=== PATIENT | male | born 1985 | race Caucasian/White ===

== ENCOUNTER 2019-03-17 18:03 | Emergency (ER) | payer BC ==
[2019-03-17] MEDS ORDERED: Ondansetron 4 MG Tab.DIS PO ONE (19:02)
[2019-03-17] MEDS ORDERED: Alum Hydrox/Mag Hydrox/Simeth 30 ML, Lidocaine 2% 15 ML PO ONE ×2 (19:02)
--- NOTE | 2019-03-17 19:11 | EDM.PDOC ---
ED HPI GENERAL MEDICAL PROBLEM - General Chief Complaint: Chest Pain Stated Complaint: CHEST PAIN SENT BY CLINIC Time Seen by Provider: 03/17/19 18:34 Source of Information: Reports: Patient History Limitations: Reports: No Limitations - History of Present Illness INITIAL COMMENTS - FREE TEXT/NARRATIVE: 34 yo M comes in today with complaints of epigastric pain and heart burn x 3-4 weeks. He has cough with it which wakes him up at night, as well as nausea and emesis. He's at the point now that it's difficult to keep food down and he is on a liquid diet now. Typically, highly acidic foods cause the acid reflux but lately "it's been everything". He has tried Omeprazole, Zantac, Tums and Rolaids. Omeprazole helped for about 2-3 weeks and then stopped- he is still taking it. He has never had an endoscopy. He is a smoker, 1/2 ppd x 20 years. He denies any other chest pain, diarrhea, worsening symptoms with food, h/o ulcer. No other complaints at this time. Just moved here a couple months ago, no PCP. Left Chest Pain Score (Numeric/FACES): 10 - Related Data Allergies Allergy/AdvReac Type Severity Reaction Status Date / Time No Known Allergies Allergy Verified 03/17/19 18:12 Home Meds: Home Meds Amoxicillin 1,000 mg PO BID 14 Days #56 tab 03/17/19 [Rx] Clarithromycin 500 mg PO BID 14 Days #28 tablet 03/17/19 [Rx] Lisinopril/Hydrochlorothiazide [Lisinopril-HCTZ 10-12.5 MG] 1 tab PO DAILY 03/17 [History] Omeprazole 20 mg PO BID 42 Days #84 cap.sr 03/17/19 [Rx] Promethazine [Phenergan] 25 mg PO Q4H PRN #20 tab 03/17/19 [Rx] Past Medical History - Past Health History Medical/Surgical History: Denies Medical/Surgical History HEENT History: Reports: None Cardiovascular History: Reports: Hypertension Respiratory History: Reports: None Gastrointestinal History: Reports: Chronic Diarrhea, GERD Genitourinary History: Reports: Renal Disease Other Genitourinary History: renal failure due to dehydration, hypertension 4 years ago. Musculoskeletal History: Reports: Back Pain, Chronic, Fracture Neurological History: Reports: None Psychiatric History: Reports: None Endocrine/Metabolic History: Reports: None Hematologic History: Reports: None Immunologic History: Reports: None Oncologic (Cancer) History: Reports: None Dermatologic History: Reports: None - Infectious Disease History Infectious Disease History: Reports: None - Past Surgical History GI Surgical History: Reports: None Social & Family History - Family History Family Medical History: Noncontributory Cardiac: Reports: Hypertension Endocrine/Metabolic: Reports: Diabetes, type II Oncologic: Reports: Breast - Tobacco Use Smoking Status *Q: Current Every Day Smoker Years of Tobacco use: 20 Packs/Tins Daily: 0.5 - Caffeine Use Caffeine Use: Reports: Coffee, Energy Drinks, Soda, Tea - Recreational Drug Use Recreational Drug Use: Yes Drug Use in Last 12 Months: Yes Recreational Drug Type: Reports: Marijuana/Hashish ED ROS GENERAL - Review of Systems Review Of Systems: See Below Constitutional: Reports: No Symptoms. Denies: Fever, Chills, Decreased Appetite HEENT: Reports: No Symptoms Respiratory: Reports: Cough (dry cough, with acid reflux). Denies: Shortness of Breath, Sputum Cardiovascular: Reports: Chest Pain (epigastric region) Endocrine: Reports: No Symptoms GI/Abdominal: Reports: Nausea, Vomiting (food or bile). Denies: Abdominal Pain , Black Stool, Constipation, Diarrhea, Decreased Appetite, Hematemesis, Hematochezia : Reports: No Symptoms Musculoskeletal: Reports: No Symptoms Skin: Reports: No Symptoms Neurological: Reports: No Symptoms Psychiatric: Reports: No Symptoms Hematologic/Lymphatic: Reports: No Symptoms Immunologic: Reports: No Symptoms ED EXAM, GENERAL - Physical Exam Exam: See Below Exam Limited By: No Limitations General Appearance: Alert, WD/WN, No Apparent Distress Eye Exam: Bilateral Eye: EOMI, Normal Inspection, PERRL Ears: Normal External Exam, Hearing Grossly Normal Throat/Mouth: Normal Inspection, Normal Lips, Normal Teeth, Normal Gums, Normal Oropharynx, Normal Voice, No Airway Compromise Neck: Normal Inspection, Supple, Non-Tender, Full Range of Motion Respiratory/Chest: No Respiratory Distress, Lungs Clear, Normal Breath Sounds, No Accessory Muscle Use, Chest Non-Tender Cardiovascular: Normal Peripheral Pulses, Regular Rate, Rhythm, No Edema, No Gallop, No JVD, No Murmur, No Rub GI/Abdominal: Normal Bowel Sounds, Soft, Non-Tender, No Organomegaly, No Distention, No Abnormal Bruit, No Mass. No: Guarding, Rigid, Rebound Neurological: Alert, Oriented, CN II-XII Intact, Normal Cognition, Normal Gait, Normal Reflexes, No Motor/Sensory Deficits Psychiatric: Normal Affect, Normal Mood Skin Exam: Warm, Dry, Intact, Normal Color, No Rash EKG INTERPRETATION EKG Date: 03/17/19 Time: 19:17 Rhythm: NSR [place]: Normal P-Wave: Present QRS: Normal ST-T: Normal QT: Normal Course - Vital Signs Last Recorded V/S: Last Vital Signs Temp 98.3 F 03/17/19 18:16 Pulse 73 03/17/19 18:16 Resp 16 03/17/19 18:16 BP 164/99 H 03/17/19 18:16 Pulse Ox 97 03/17/19 18:16 - Orders/Labs/Meds Orders: Active Orders 24 hr Category Date Time Status EKG Documentation Completion [RC] ASDIRECTED Care 03/17/19 19:02 Active CXR [Chest 1V Frontal] [CR] Stat Exams 03/17/19 19:02 Taken EKG 12 Lead [EK] Stat Ther 03/17/19 19:01 Ordered Labs: Laboratory Tests 03/17/19 Range/Units 19:16 H. pylori IgG Antibody Positive H (NEGATIVE) Meds: Medications Discontinued Medications Generic Name Dose Route Start Last Admin Trade Name Freq PRN Reason Stop Dose Admin Al Hydroxide/Mg Hydroxide 30 0 ml 03/17/19 19:02 03/17/19 19:11 ml/ Lidocaine HCl 15 ml PO 03/17/19 19:03 45 ml ONETIME ONE Administration Ondansetron HCl 4 mg 03/17/19 19:02 03/17/19 19:11 Zofran Odt PO 03/17/19 19:03 4 mg ONETIME ONE Administration Sucralfate 1 gm 03/17/19 19:21 03/17/19 19:31 Carafate PO 03/17/19 19:22 1 gm ONETIME ONE Administration - Re-Assessments/Exams Free Text/Narrative Re-Assessment/Exam: 03/17/19 19:03 I have ordered H pylori, EKG, CXR GI cocktail, Zofran 03/17/19 19:26 EKG and CXR reviewed by Dr. Mane and myself- nothing acute seen. 03/17/19 20:06 H pylori positive Departure - Departure Time of Disposition: 20:12 Disposition: Home, Self-Care 01 Condition: Fair Clinical Impression: H. pylori infection, Heart burn Prescriptions: Amoxicillin 1,000 mg PO BID 14 Days #56 tab Clarithromycin 500 mg PO BID 14 Days #28 tablet Omeprazole 20 mg PO BID 42 Days #84 cap.sr Promethazine [Phenergan] 25 mg PO Q4H PRN #20 tab PRN Reason: Nausea Instructions: Helicobacter Pylori Infection, Heartburn, [id number] Referrals: PCP,None [Primary Care Provider] - Forms: ED Department Discharge Additional Instructions: You were seen in the ED today for heartburn x 3-4 weeks w/ nausea and emesis. Your cardiac workup was negative and your history is indicative of GERD. Recommend bland diet (BRAT- banana, rice, applesauce, toast) and liquids. Recommend follow up with surgeon for endoscopy. You can call to make an appointment with Dr. Muller at . You were also found to be H Pylori positive, so an antibiotic regimen will need to be started to kill this infection. Recommend taking omeprazole 20mg twice per day for 3-4 days first, then add the antibiotic regimen of Amoxicillin 1 g twice daily for 14 days and Clarithromycin twice daily for 14 days. Continue the omeprazole for at least 6 weeks. Please return to ED if new or worsening symptoms. - My Orders Last 24 Hours: My Active Orders 03/17/19 19:01 EKG 12 Lead [EK] Stat 03/17/19 19:02 EKG Documentation Completion [RC] ASDIRECTED CXR [Chest 1V Frontal] [CR] Stat - Assessment/Plan Last 24 Hours: My Active Orders 03/17/19 19:01 EKG 12 Lead [EK] Stat 03/17/19 19:02 EKG Documentation Completion [RC] ASDIRECTED CXR [Chest 1V Frontal] [CR] Stat
[2019-03-17] MEDS ORDERED: Sucralfate Suspension 1 GM/10 ML Cup PO ONE (19:21)
--- NOTE | 2019-03-18 08:34 | CR ---
Chest: Portable view of the chest was obtained. Comparison: Prior chest x-ray is not available. Heart size and mediastinum are within normal limits. Lungs are clear with no acute parenchymal change. Bony structures are grossly intact. Impression: 1. Nothing acute is appreciated on portable chest x-ray. Diagnostic code #1
== END 2019-03-17 20:44 | disposition home or self-care (01) ==
LOC: JD.ED 18:03
DX: R12 Heartburn (principal); B96.81 Helicobacter pylori [H. pylori] as the cause of diseases classified elsewhere; I10 Essential (primary) hypertension; F17.210 Nicotine dependence, cigarettes, uncomplicated; Z79.899 Other long term (current) drug therapy
CPT/HCPCS: 36415; 71045; 86677; 93005; 99285; A9270; 93010; 99284

== ENCOUNTER 2019-09-18 04:05 | Emergency (ER) | payer BC ==
[2019-09-18] MEDS ORDERED: Ondansetron 4 MG/2 ML SDV IVPUSH ONE (04:24)
[2019-09-18] MEDS ORDERED: Pantoprazole 40 MG Vial IVPUSH ONE (04:24)
[2019-09-18] MEDS ORDERED: HYDROmorphone 0.5 MG/0.5 ML Syringe IVPUSH ONE (04:25)
--- NOTE | 2019-09-18 04:29 | EDM.PDOC ---
ED HPI GENERAL MEDICAL PROBLEM - General Chief Complaint: Gastrointestinal Problem Stated Complaint: VOMITING Time Seen by Provider: 09/18/19 04:08 Source of Information: Reports: Patient History Limitations: Reports: No Limitations - History of Present Illness INITIAL COMMENTS - FREE TEXT/NARRATIVE: This 34-year-old male. Onset of nausea and vomiting about 20 minutes prior to coming to the ER. He is vomiting up brown-looking emesis. He complains of abdominal pain in the lower abdomen as well as midline epigastric and up. He does have a history of H. pylori back in March of this year but was treated for 3 weeks with antibiotics and hasn't had a problem since. He ate home. This evening and apparently was okay. He does have a history of heartburn and hiatal hernia. He is actively vomiting when he comes to the ER. He has loose stools which is normal for him. He denies any fever or chills. He states that prior to this he was feeling okay. Upper Abdomen Pain Score (Numeric/FACES): 10 - Related Data Allergies Allergy/AdvReac Type Severity Reaction Status Date / Time bee venom protein (honey bee) Allergy Swelling Verified 09/18/19 04:16 soap Allergy Cannot Verified 09/18/19 04:16 Remember Home Meds: Home Meds Lisinopril/Hydrochlorothiazide [Lisinopril-HCTZ 10-12.5 MG] 1 tab PO DAILY 03/17 [History] Omeprazole 20 mg PO BID 42 Days #84 cap.sr 03/17/19 [Rx] Tetracycline HCl 500 mg PO QID #56 capsule 09/18/19 [Rx] metroNIDAZOLE [Flagyl] 500 mg PO Q12H #28 tab 09/18/19 [Rx] Past Medical History - Past Health History Medical/Surgical History: Denies Medical/Surgical History HEENT History: Reports: None Cardiovascular History: Reports: High Cholesterol, Hypertension Respiratory History: Reports: None Gastrointestinal History: Reports: Chronic Diarrhea, GERD, Helicobacter Pylori, Hiatal Hernia Genitourinary History: Reports: Renal Disease Other Genitourinary History: renal failure due to dehydration, hypertension 4 years ago. Musculoskeletal History: Reports: Back Pain, Chronic, Fracture Neurological History: Reports: None Psychiatric History: Reports: None Endocrine/Metabolic History: Reports: None Hematologic History: Reports: None Immunologic History: Reports: None Oncologic (Cancer) History: Reports: None Dermatologic History: Reports: None - Infectious Disease History Infectious Disease History: Reports: None - Past Surgical History GI Surgical History: Reports: None Social & Family History - Family History Family Medical History: Noncontributory Cardiac: Reports: Hypertension Endocrine/Metabolic: Reports: Diabetes, type II Oncologic: Reports: Breast - Tobacco Use Smoking Status *Q: Current Every Day Smoker Years of Tobacco use: 20 Packs/Tins Daily: 0.5 - Caffeine Use Caffeine Use: Reports: Coffee, Energy Drinks, Soda, Tea - Recreational Drug Use Recreational Drug Use: No ED ROS GENERAL - Review of Systems Review Of Systems: See Below Constitutional: Denies: Fever, Chills HEENT: Reports: No Symptoms Respiratory: Reports: No Symptoms Cardiovascular: Reports: No Symptoms Endocrine: Reports: No Symptoms GI/Abdominal: Reports: Abdominal Pain, Nausea, Vomiting. Denies: Diarrhea : Reports: No Symptoms Musculoskeletal: Reports: No Symptoms Skin: Reports: No Symptoms Neurological: Reports: No Symptoms Psychiatric: Reports: No Symptoms Hematologic/Lymphatic: Reports: No Symptoms ED EXAM, GI/ABD - Physical Exam Exam: See Below Exam Limited By: No Limitations General Appearance: Alert, WD/WN, Mild Distress Eyes: Bilateral: Normal Appearance Ears: Normal External Exam Nose: Normal Inspection Throat/Mouth: Normal Inspection, Normal Lips, Normal Voice, No Airway Compromise Head: Normocephalic Neck: Supple Respiratory/Chest: No Respiratory Distress, Lungs Clear, Normal Breath Sounds Cardiovascular: Regular Rate, Rhythm, No Murmur, Tachycardia GI/Abdominal Exam: Soft, Other (He is tender in the epigastric area on palpation and also slightly in the lower abdomen, right upper quadrant is not particularly tender on palpation and there is negative Esquivel sign, bowel sounds are quiet.) Back Exam: Full Range of Motion Extremities: Normal Inspection, Normal Range of Motion Neurological: Alert, Oriented Psychiatric: Normal Affect, Normal Mood Skin Exam: Warm, Dry Course - Vital Signs Last Recorded V/S: Last Vital Signs Temp 97.3 F 09/18/19 04:13 Pulse 118 H 09/18/19 04:13 Resp 19 09/18/19 04:13 BP 138/81 09/18/19 04:13 Pulse Ox 96 09/18/19 04:13 - Orders/Labs/Meds Orders: Active Orders 24 hr Category Date Time Status Sodium Chloride 0.9% [Normal Saline] 1,000 ml Med 09/18/19 04:30 Active IV ASDIRECTED Medication Orders Sodium Chloride (Normal Saline) 1,000 mls @ 1,000 mls/hr IV ASDIRECTED RUSSELL Last Admin: 09/18/19 04:41 Dose: 1,000 mls/hr Labs: Laboratory Tests 09/18/19 09/18/19 09/18/19 Range/Units 04:25 04:25 04:25 WBC 10.72 H (4.23-9.07) K/mm3 RBC 4.90 (4.63-6.08) M/mm3 Hgb 14.7 (13.7-17.5) gm/dl Hct 42.0 (40.1-51.0) % MCV 85.7 (79.0-92.2) fl MCH 30.0 (25.7-32.2) pg MCHC 35.0 (32.2-35.5) g/dl RDW Std Deviation 38.7 (35.1-43.9) fL Plt Count 312 (163-337) K/mm3 MPV 10.2 (9.4-12.3) fl Neut % (Auto) 56.4 (34.0-67.9) % Lymph % (Auto) 34.6 (21.8-53.1) % [place] % (Auto) 8.0 (5.3-12.2) % Eos % (Auto) 0.5 L (0.8-7.0) Baso % (Auto) 0.2 (0.1-1.2) % Neut # (Auto) 6.05 H (1.78-5.38) K/mm3 Lymph # (Auto) 3.71 H (1.32-3.57) K/mm3 [place] # (Auto) 0.86 H (0.30-0.82) K/mm3 Eos # (Auto) 0.05 (0.04-0.54) K/mm3 Baso # (Auto) 0.02 (0.01-0.08) K/mm3 Manual Slide Review Abnormal smear Sodium 141 (136-145) mEq/L Potassium 3.9 (3.5-5.1) mEq/L Chloride 102 (98-107) mEq/L Carbon Dioxide 23 (21-32) mEq/L Anion Gap 19.9 H (5-15) BUN 19 H (7-18) mg/dL Creatinine 1.1 (0.7-1.3) mg/dL Est Cr Clr Drug Dosing 94.62 mL/min Estimated GFR (MDRD) > 60 (>60) mL/min BUN/Creatinine Ratio 17.3 (14-18) Glucose 147 H (74-106) mg/dL Calcium 8.3 L (8.5-10.1) mg/dL Total Bilirubin 0.3 (0.2-1.0) mg/dL AST 31 (15-37) U/L ALT 64 H (16-63) U/L Alkaline Phosphatase 78 (46-116) U/L Total Protein 7.9 (6.4-8.2) g/dl Albumin 3.9 (3.4-5.0) g/dl Globulin 4.0 gm/dL Albumin/Globulin Ratio 1.0 (1-2) Lipase 98 (73-393) U/L H. pylori IgG Antibody Positive H (NEGATIVE) Meds: Medications Generic Name Dose Route Start Last Admin Trade Name Freq PRN Reason Stop Dose Admin Sodium Chloride 1,000 mls @ 1,000 mls/hr 09/18/19 04:30 09/18/19 04:41 Normal Saline IV 1,000 mls/hr ASDIRECTED RUSSELL Administration Discontinued Medications Generic Name Dose Route Start Last Admin Trade Name Freq PRN Reason Stop Dose Admin Hydromorphone HCl 0.5 mg 09/18/19 04:25 09/18/19 04:39 Dilaudid IVPUSH 09/18/19 04:26 0.5 mg ONETIME ONE Administration Ondansetron HCl 4 mg 09/18/19 04:24 09/18/19 04:32 Zofran IVPUSH 09/18/19 04:25 4 mg ONETIME ONE Administration Pantoprazole Sodium 40 mg 09/18/19 04:24 09/18/19 04:35 Protonix Iv IVPUSH 09/18/19 04:25 40 mg ONETIME ONE Administration - Re-Assessments/Exams Free Text/Narrative Re-Assessment/Exam: 09/18/19 04:35 We did check the emesis for some blood and it was positive for some blood slightly. I'm not certain if he is having a ulcer there might be bleeding slightly but it is old blood not bright red blood. He does have a history of ulcers from H. pylori though he is never had any sort of bleeding. He denies any black or tarry looking stools lately. He does state he had a couple of beers and tamales that were very spicy tonight. 09/18/19 05:58 I spoke to the and the patient regarding the positive H. pylori and I believe he has an ulcer again and we need to treat him. He is to follow up with the doctor on Friday for recheck. I'll put him on a two-week dose regimen but it will need to be extended for at least another week if not 2 more weeks after that. Departure - Departure Time of Disposition: 05:59 Disposition: Home, Self-Care 01 Condition: Fair Clinical Impression: H. pylori duodenitis, Hematemesis with nausea, Peptic ulcer, H. pylori infection - Discharge Information *PRESCRIPTION DRUG MONITORING PROGRAM REVIEWED*: Not Applicable *COPY OF PRESCRIPTION DRUG MONITORING REPORT IN PATIENT RANDEE: Not Applicable Prescriptions: metroNIDAZOLE [Flagyl] 500 mg PO Q12H #28 tab Tetracycline HCl 500 mg PO QID #56 capsule Instructions: Hematemesis, Peptic Ulcer Eating Plan Referrals: Sydni Hudson MD [Primary Care Provider] - Forms: ED Department Discharge Additional Instructions: You need to take Bismuth subcitrate 2 tablets twice a day, this is found over the counter. Pantoprazole 40 mg twice a day, this is prescription. Then 2 antibiotics metronidazole 500 mg twice a day and tetracycline 500 mg 4 times a day. Do not drink alcohol with the metronidazole antibiotic because it will make you vomit severely. During this time you need to avoid any foods such as spicy foods, alcohol, citrus, excessively salty foods so it does not irritate your stomach and cause you to have nausea and vomiting. You need to follow up with your doctor this week for recheck, I will give you prescriptions enough for 2 weeks worth of treatment but you might need to have it extended another 1 or 2 weeks if the H. pylori is not gone, if there is marked worsening of your symptoms return to the ER - My Orders Last 24 Hours: My Active Orders 09/18/19 04:30 Sodium Chloride 0.9% [Normal Saline] 1,000 ml IV ASDIRECTED - Assessment/Plan Last 24 Hours: My Active Orders 09/18/19 04:30 Sodium Chloride 0.9% [Normal Saline] 1,000 ml IV ASDIRECTED
[2019-09-18] MEDS ORDERED: Sodium Chloride 0.9% 1,000 ML IV SCH (04:30)
== END 2019-09-18 06:20 | disposition home or self-care (01) ==
LOC: JD.ED 04:05
DX: K29.81 Duodenitis with bleeding (principal); B96.81 Helicobacter pylori [H. pylori] as the cause of diseases classified elsewhere; K27.4 Chronic or unspecified peptic ulcer, site unspecified, with hemorrhage; I10 Essential (primary) hypertension; K21.9 Gastro-esophageal reflux disease without esophagitis; F17.210 Nicotine dependence, cigarettes, uncomplicated; Z91.030 Bee allergy status; Z91.048 Other nonmedicinal substance allergy status
CPT/HCPCS: 36415; 80053; 83690; 85025; 86677; 96361; 96374; 96375; 99284; C9113; J1170; J2405; J7040; 99283

== ENCOUNTER 2020-08-06 03:41 | Emergency (ER) | payer SELFPAY ==
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
[2020-08-06] MEDS ORDERED: Acetaminophen 325 MG Tab PO ONE (04:53)
--- NOTE | 2020-08-06 08:26 | CT ---
Head CT Technique: Multiple axial sections through the brain were obtained. Intravenous contrast was not utilized. Comparison: No prior intracranial imaging is available. Findings: Ventricles along with basal cisterns and sulci over the convexities are within normal limits for the patient's age. No abnormal parenchymal densities are seen. No evidence of intracranial hemorrhage. No midline shift or mass-effect is seen. Mild asymmetry of the lateral ventricles are noted believed to be normal variant. Soft tissue swelling is noted within the posterior left scalp. Bone window settings were reviewed. No acute calvarial abnormality is seen. Mild mucosal thickening is seen within the left mastoid sinus. Increased soft tissue density noted within the nasal cavity. Slightly comminuted and mildly displaced nasal bone fracture is seen. Visualized mastoid sinuses are clear. Impression: 1. Nasal bone fracture. Soft tissue density within the nasal cavity presumably due to blood. 2. No acute intracranial abnormality is appreciated. 3. Scalp soft tissue swelling posteriorly. Diagnostic code #3 This report was dictated in MDT I agree with preliminary report issued by Jacqueline ([facility] report finalized on 08/06/20, 5:53 AM Central Time)
--- NOTE | 2020-08-06 08:31 | CT ---
CT facial bones Technique: Multiple axial sections through the facial bones were obtained. Reconstructed coronal and sagittal images were obtained. Comparison: No prior facial bone study is available. Findings: Globes are symmetric. Mild soft tissue swelling is noted with the left periorbital region and at the base of the nose. Nasal bone fracture is seen which is slightly comminuted and mildly displaced. Mild increased soft tissue density within the nasal cavity is seen presumably due to blood. Mild mucosal thickening is seen within the left maxillary sinus. No additional fracture or other bony abnormality is seen within the facial bones. Impression: 1. Nasal bone fracture and soft tissue swelling. 2. Soft tissue density within the nasal cavity compatible with blood. 3. No additional facial bone fracture is seen on this exam. Diagnostic code #3 This report was dictated in MDT I agree with preliminary report issued by Jacqueline ([facility] report finalized on 08/06/20, 5:49 AM Central Time)
== END 2020-08-06 05:30 | disposition home or self-care (01) ==
LOC: JD.ED 03:41
DX: S02.2XXA Fracture of nasal bones, initial encounter for closed fracture (principal); S01.21XA Laceration without foreign body of nose, initial encounter; F17.210 Nicotine dependence, cigarettes, uncomplicated; S09.90XA Unspecified injury of head, initial encounter; K21.9 Gastro-esophageal reflux disease without esophagitis; I10 Essential (primary) hypertension; Z91.030 Bee allergy status; Z91.048 Other nonmedicinal substance allergy status
CPT/HCPCS: 12011; 70450; 70486; 99284; A9270; 12001; 99282